=== PATIENT | male | born 1945 | race Caucasian/White ===

== ENCOUNTER 2021-11-30 15:39 | Inpatient (IN) | payer MEDICARE ==
[~2021-11-30] VITALS: Ht 180.3 cm; Wt 98.9 kg
[2021-11-30] MEDS ORDERED: ACETAMINOPHEN 500 MG TABLET ONE (15:59)
[2021-11-30 16:23] LABS: BASOPHILS % (AUTO) 2.3 % (0.0-5.0); EOSINOPHILS % (AUTO) 0.2 % (0.0-8.0); HEMATOCRIT 31.4 % (42-54); LYMPHOCYTES % (AUTO) 4.3 % (21.0-51.0); MEAN CORPUSCULAR HEMOGLOBIN 28.4 pg (27.0-33.0); MEAN CORPUSCULAR HGB CONC 32.8 g/dL (32.0-36.0); MEAN CORPUSCULAR VOLUME 86.5 fL (79-99); MONOCYTES % (AUTO) 7.6 % (3.0-13.0); NEUTROPHILS % (AUTO) 77.8 % (40.0-77.0); NUCLEATED RED BLOOD CELLS 1.6 % (0.0-0.19); PLATELET COUNT (AUTO) 175 K/uL (130-400); RED BLOOD CELL COUNT(AUTO) 3.63 MIL/uL (4.50-6.20); RED CELL DISTRIBUTION WIDTH 17.9 % (11.0-15.5); WHITE BLOOD COUNT (AUTO) 4.4 K/uL (4.8-10.8)
[2021-11-30 16:35] LABS: CREATININE 2.1 mg/dL (0.5-1.5); POTASSIUM 4.2 mmol/L (3.5-5.1)
[2021-11-30 16:39] LABS: APPEARANCE,URINE CLEAR (CLEAR); BILIRUBIN,URINE SMALL (NEGATIVE); COLOR,URINE YELLOW (YELLOW); GLUCOSE, URINE (UA) NEGATIVE (NEGATIVE); KETONES,URINE 5 mg/dL (NEGATIVE); LEUKOCYTE ESTERASE ,URINE NEGATIVE (NEGATIVE); NITRATE,URINE NEGATIVE (NEGATIVE); OCCULT BLOOD,URINE NEGATIVE (NEGATIVE); PH,URINE 5.5 (5.0-8.0); PROTEIN,URINE 30 mg/dL (NEGATIVE)
[2021-11-30 16:40] LABS: ALBUMIN 3.6 g/dL (3.5-5.0); BILIRUBIN,TOTAL 1.7 mg/dL (0.2-1.0); TOTAL PROTEIN, SERUM 6.5 g/dL (6.0-8.3)
[2021-11-30 17:06] LABS: BACTERIA,URINE Few /HPF (None Seen); RBC,URINE 0-1 /HPF (0-1)
[2021-11-30 17:07] LABS: SQUAMOUS EPITHELIAL CELL,UR Rare /HPF (0-2)
[2021-11-30] MEDS ORDERED: CEFTRIAXONE 1G VIAL IVP ONE (18:00)
[2021-11-30] MEDS ORDERED: 0.9% NACL 500ML IV.SOLN 500 ML IV ONE (18:00)
[2021-11-30] MEDS ORDERED: ONDANSETRON 4MG INJ IV PRN (21:30)
[2021-11-30] MEDS ORDERED: ACETAMINOPHEN 325 MG TAB PO PRN ×2 (21:30)
[2021-11-30] MEDS: 0.9%NACL 1000ML 1,000 ML IV SCH (21:55)
[2021-12-01 03:17] LABS: BASOPHILS % (AUTO) 1.8 % (0.0-5.0); EOSINOPHILS % (AUTO) 0.9 % (0.0-8.0); HEMATOCRIT 25.4 % (42-54); LYMPHOCYTES % (AUTO) 10.1 % (21.0-51.0); MEAN CORPUSCULAR HEMOGLOBIN 27.8 pg (27.0-33.0); MEAN CORPUSCULAR HGB CONC 32.3 g/dL (32.0-36.0); MEAN CORPUSCULAR VOLUME 86.1 fL (79-99); MONOCYTES % (AUTO) 10.1 % (3.0-13.0); NEUTROPHILS % (AUTO) 68.4 % (40.0-77.0); NUCLEATED RED BLOOD CELLS 1.2 % (0.0-0.19); PLATELET COUNT (AUTO) 151 K/uL (130-400); RED BLOOD CELL COUNT(AUTO) 2.95 MIL/uL (4.50-6.20); RED CELL DISTRIBUTION WIDTH 17.9 % (11.0-15.5); WHITE BLOOD COUNT (AUTO) 3.4 K/uL (4.8-10.8)
[2021-12-01 03:29] LABS: CREATININE 1.9 mg/dL (0.5-1.5); POTASSIUM 3.8 mmol/L (3.5-5.1)
[2021-12-01 04:10] VITALS: BP 122/63
[2021-12-01] MEDS: 0.9%NACL 1000ML 1,000 ML IV SCH ×2 (06:40→16:57)
[2021-12-01 08:00] VITALS: BP 98/59
[2021-12-01] MEDS: TAMSULOSIN HCL 0.4 MG CAP.ER.24H PO SCH (08:20)
[2021-12-01] MEDS: CEFTRIAXONE 1G VIAL IVP SCH (08:20)
[2021-12-01 11:54] VITALS: BP 103/67
[2021-12-01 16:00] VITALS: BP 111/66
[2021-12-01 20:00] VITALS: BP 122/65
[2021-12-02] VITALS (7 sets, daily range): BP systolic 96–115; BP diastolic 55–71
[2021-12-02] MEDS: 0.9%NACL 1000ML 1,000 ML IV SCH ×2 (02:36→13:33)
[2021-12-02 04:57] LABS: BASOPHILS % (AUTO) 2.5 % (0.0-5.0); EOSINOPHILS % (AUTO) 2.5 % (0.0-8.0); HEMATOCRIT 26.9 % (42-54); LYMPHOCYTES % (AUTO) 16.5 % (21.0-51.0); MEAN CORPUSCULAR HGB CONC 32.3 g/dL (32.0-36.0); MEAN CORPUSCULAR VOLUME 86.5 fL (79-99); MONOCYTES % (AUTO) 11.2 % (3.0-13.0); NEUTROPHILS % (AUTO) 53.9 % (40.0-77.0); NUCLEATED RED BLOOD CELLS 0.6 % (0.0-0.19); PLATELET COUNT (AUTO) 153 K/uL (130-400); RED BLOOD CELL COUNT(AUTO) 3.11 MIL/uL (4.50-6.20); RED CELL DISTRIBUTION WIDTH 17.8 % (11.0-15.5); WHITE BLOOD COUNT (AUTO) 3.2 K/uL (4.8-10.8)
[2021-12-02 05:19] LABS: ALBUMIN 2.8 g/dL (3.5-5.0); BILIRUBIN,TOTAL 0.6 mg/dL (0.2-1.0); CREATININE 1.8 mg/dL (0.5-1.5); POTASSIUM 4.4 mmol/L (3.5-5.1); TOTAL PROTEIN, SERUM 5.5 g/dL (6.0-8.3)
[2021-12-02 05:25] LABS: % IRON SATURATION 24.2 % (30-44)
[2021-12-02] MEDS: TAMSULOSIN HCL 0.4 MG CAP.ER.24H PO SCH (07:58)
[2021-12-02] MEDS: CEFTRIAXONE 1G VIAL IVP SCH (07:59)
[2021-12-02] MEDS ORDERED: IRON SUCROSE COMPLEX 100 MG in 0.9%NACL 50ML 50 ML IV SCH (09:00)
[2021-12-02] MEDS: IRON SUCROSE COMPLEX 100 MG/5 ML VIAL IVP SCH (10:18)
[2021-12-02] MEDS: NYSTATIN 100000 UNIT/ML 5ML UDCUP PO SCH ×2 (10:18→21:00)
[2021-12-02] MEDS ORDERED: Vitamin B Complex/Vit C/Folic Acid PO SCH (21:00)
[2021-12-03 03:54] LABS: HEMATOCRIT 30.4 % (42-54); MEAN CORPUSCULAR HEMOGLOBIN 27.5 pg (27.0-33.0); MEAN CORPUSCULAR HGB CONC 31.3 g/dL (32.0-36.0); MEAN CORPUSCULAR VOLUME 88.1 fL (79-99); NUCLEATED RED BLOOD CELLS 1.1 % (0.0-0.19); PLATELET COUNT (AUTO) 166 K/uL (130-400); RED BLOOD CELL COUNT(AUTO) 3.45 MIL/uL (4.50-6.20); RED CELL DISTRIBUTION WIDTH 17.8 % (11.0-15.5); WHITE BLOOD COUNT (AUTO) 4.5 K/uL (4.8-10.8)
[2021-12-03 03:57] VITALS: BP 100/61
[2021-12-03 04:03] LABS: CREATININE 1.5 mg/dL (0.5-1.5); POTASSIUM 4.2 mmol/L (3.5-5.1)
[2021-12-03 05:11] LABS: BAND NEUTROPHILS % (MANUAL) 2 % (0-2); BASOPHILS % (MANUAL) 4 % (0-2); EOSINOPHILS % (MANUAL) 4 % (1-6); LYMPHOCYTES % (MANUAL) 21 % (22-44); MAN.DIFF COMMENT-IMPRESSION MANUAL DIFFERENTIAL; METAMYELOCYTES % 2 % (0-0); MONOCYTES % (MANUAL) 14 % (2-9); REACTIVE LYMPHOCYTES 3 % (0-0); SEGMENTED NEUTROPHILS % 50 % (40-70)
[2021-12-03] MEDS: TAMSULOSIN HCL 0.4 MG CAP.ER.24H PO SCH (06:05)
[2021-12-03 07:35] VITALS: BP 98/62
[2021-12-03] MEDS: IRON SUCROSE COMPLEX 100 MG/5 ML VIAL IVP SCH (09:11)
[2021-12-03] MEDS: NYSTATIN 100000 UNIT/ML 5ML UDCUP PO SCH (09:11)
[2021-12-03] MEDS: CEFTRIAXONE 1G VIAL IVP SCH (09:11)
[2021-12-03] MEDS ORDERED: FINASTERIDE 5 MG TABLET PO SCH (09:30)
[2021-12-03] MEDS ORDERED: LEVO500T90 PO (09:34)
[2021-12-03] MEDS ORDERED: FERR-82 PO (09:34)
[2021-12-03] MEDS ORDERED: TAMS-1 PO (09:34)
[2021-12-03] MEDS ORDERED: FINA5TAB41 PO (09:34)
[2021-12-03] MEDS ORDERED: TAMSULOSIN HCL 0.4 MG CAP.ER.24H PO SCH (10:20)
[2021-12-03 11:20] VITALS: BP 120/72
[2021-12-04] MEDS ORDERED: FINASTERIDE 5 MG TABLET PO SCH (09:00)
== END 2021-12-03 13:45 | disposition home or self-care (01) | DRG 728 ==
LOC: EDH 15:39 → EDHIP 21:16 → 3DH 12-01 04:07
PROVIDERS: ADMIT Hospitalist; ATTEND Hospitalist
DX: N41.0 Acute prostatitis (principal); N17.9 Acute kidney failure, unspecified; N39.0 Urinary tract infection, site not specified; N18.30 Chronic kidney disease, stage 3 unspecified; I12.9 Hypertensive chronic kidney disease with stage 1 through stage 4 chronic kidney disease, or unspecified chronic kidney disease; D50.9 Iron deficiency anemia, unspecified; N40.0 Benign prostatic hyperplasia without lower urinary tract symptoms; Z90.5 Acquired absence of kidney; G20 Parkinson's disease; E78.1 Pure hyperglyceridemia; G89.29 Other chronic pain; Z20.822 Contact with and (suspected) exposure to COVID-19; Z79.899 Other long term (current) drug therapy; Z91.19 Patient's noncompliance with other medical treatment and regimen
CPT/HCPCS: 36415; 71045; 74176; 80048; 80053; 81001; 83540; 83550; 83605; 84145; 84153; 85025; 85651; 86140; 87040; 87088; 87635; 87804; 87880; 93005; C9803; G0378; J0696; J1756

== ENCOUNTER → 2023-11-24 | Outpatient (CLI) | payer MEDICARE ==
[~2023-11-24] MED LIST: FERR-82 PO; FINA5TAB41 PO; LEVO-70 PO; TAMS-1 PO
== END | disposition home or self-care (01) ==
LOC: RAH 09:52
PROVIDERS: ATTEND Physician Assistant
DX: M47.816 Spondylosis without myelopathy or radiculopathy, lumbar region (principal); M25.78 Osteophyte, vertebrae; M48.061 Spinal stenosis, lumbar region without neurogenic claudication
CPT/HCPCS: 72100